=== PATIENT | male | born 1965 | race Caucasian/White ===

== ENCOUNTER 2017-09-01 16:28 | Emergency (ER) | payer OTHER ==
[~2017-09-01] VITALS: Ht 193 cm; Wt 114.0 kg
[2017-09-01 16:32] VITALS: BP 158/83; PULSE 101; RESP 16; TEMP 98.1; O2SAT 95
[2017-09-01] MEDS ORDERED: LISI-519 PO (16:41)
[2017-09-01] MEDS ORDERED: ADVA100A INH (16:41)
--- NOTE | 2017-09-01 16:57 | PD ---
HPI Chief Complaint: Laceration/Skin Injury Time Seen by Provider: 16:48 Travel History International Travel<30 days: No Contact w/Intl Traveler<30days: No Traveled to known affect area: No History of Present Illness HPI 51-year-old right-hand dominant male with PMH of hypertension presents to the ED for evaluation of laceration of the fingernail of the index finger of the left hand. Endorses 2/10 pain, constant, no alleviating or exacerbating factors reported. Sustained just before arrival while the patient was cutting vegetables at home just before arrival. He denies numbness, tingling, weakness , limitations to range of motion of the extremities. He is unsure of the date of his last tetanus immunization. Treatment attempted at home. PFSH Past Medical History COPD: Yes Hypertension: Yes Past Surgical History Surgical History: No Previous Surgery Social History Alcohol Use: Yes Tobacco Use: No Substance Use: No Allergies-Medications (Allergen,Severity, Reaction): Coded Allergies: aspirin (Verified Allergy, Unknown, 09/01/17) Reported Meds & Prescriptions Reported Meds & Active Scripts Active Reported Advair Diskus Inh (Fluticasone-Salmeterol Inh) 100-50 Mcg/Blist Aer 1 Puff INH BID Rinse mouth after use. Lisinopril 5 Mg Tab 5 Mg PO DAILY Review of Systems Except as stated in HPI: all other systems reviewed are Neg Physical Exam Narrative GENERAL: Well-nourished, well-developed white male in no acute distress. SKIN: Focused skin assessment warm/dry. The radial aspect of the nail of the second digit of the left hand is partially avulsed. There is minimal active bleeding from the nail bed. HEAD: Normocephalic. EYES: No scleral icterus. No injection or drainage. NECK: Supple, trachea midline. No JVD or lymphadenopathy. CARDIOVASCULAR: Regular rate and rhythm without murmurs, gallops, or rubs. RESPIRATORY: Breath sounds equal bilaterally. No accessory muscle use. GASTROINTESTINAL: Abdomen soft, non-tender, nondistended. MUSCULOSKELETAL: No cyanosis, or edema. FOCUSED LEFT UPPER EXTREMITY EXAM: 2+ radial pulse. Patient retains full, active, painless ROM of the second digit of the left hand. BACK: Nontender without obvious deformity. No CVA tenderness. Data Data Last Documented VS Vital Signs Date Time Temp Pulse Resp B/P (MAP) Pulse Ox O2 Delivery O2 Flow Rate FiO2 09/01/17 16:32 98.1 101 16 158/83 (108) 95 Orders Orders Tetanus/Diphtheria Tox Adult (Tetanus/Di (09/01/17 17:00) Ed Discharge Order (09/01/17 17:25) MDM Medical Decision Making Medical Screen Exam Complete: Yes Emergency Medical Condition: Yes Differential Diagnosis Laceration versus partial avulsion versus need for tetanus immunization versus other Narrative Course 51-year-old right-hand dominant male with PMH of hypertension presents to the ED for evaluation of laceration of the fingernail of the index finger of the left hand. Sustained just before arrival while the patient was cutting vegetables at home. Vitals reviewed. Physical exam reveals partial avulsion of the radial two thirds of the nail of the second digit. There is minimal bleeding of the nail bed. The finger is otherwise completely intact. I offered the patient avulsion of the nail which he refuses at this time. I offered him pain medications which she refuses at this time. Wound Seal and 10 minutes of compression was applied to the area. This stopped the bleeding. Nonstick dressing was applied. Patient was advised to keep the wound clean, dry and covered, monitor for signs of infection, return to the ED should they occur, otherwise follow up with the primary care provider. He indicated understanding of the instructions and is agreeable to the care plan. He is stable and discharged home. Diagnosis Primary Impression: Laceration of nail bed of finger Qualified Codes: S61.319A - Laceration without foreign body of unspecified finger with damage to nail, initial encounter Additional Impression: Partial avulsion of fingernail Qualified Codes: S61.309A - Unspecified open wound of unspecified finger with damage to nail, initial encounter Referrals: Primary Care Physician Patient Instructions: General Instructions, Nail Avulsion (ED) Additional Instructions: Rest, hydrate. Utilize OTC medications as needed for pain. Elevating the hand will also help to treat throbbing pain. If bleeding should reoccur apply steady pressure to the area for 5 minutes, no peeking! If bleeding is not resolved return to the ED for evaluation. Keep the remaining nail edge trimmed short. Keep the wound clean, DRY and covered. Change the dressing every 24 hours or anytime it becomes soiled or wet. Monitor for signs of infection as discussed. Follow with primary care for wound recheck in a week. Return to the ED for any urgent or emergent medical condition. Disposition: 01 DISCHARGE HOME Condition: Stable An Davidson Sep 01, 2017 16:57
[2017-09-01] MEDS ORDERED: TETANUS/DIPHTHERIA TOXOID ADULT 0.5 ML VIAL IM ONE (17:00)
== END 2017-09-01 17:34 | disposition home or self-care (01) ==
LOC: PHEFT 16:28
DX: S61.311A Laceration without foreign body of left index finger with damage to nail, initial encounter (principal); W26.0XXA Contact with knife, initial encounter; Y93.G1 Activity, food preparation and clean up; Y92.000 Kitchen of unspecified non-institutional (private) residence as the place of occurrence of the external cause; Z23 Encounter for immunization
CPT/HCPCS: 90471; 90714